=== PATIENT | male | born 1945 | race Caucasian/White ===

== ENCOUNTER → 2017-08-11 11:00 | Outpatient (CLI) | payer MEDICARE, SELFPAY ==
--- NOTE | 2017-08-11 11:04 | CA_ITS ---
PROCEDURE: 2-D M-mode and color Doppler study INDICATIONS FOR THE TEST: Chest pain COPD Heart Murmur Tobacco Smoking Palpitations Fatigue Syncope Edema Hypertension Diabetes Mellitus Rheumatic Fever SOB MCKEON Obesity Hyperlipidemia Family History HD Additional History PATIENT INFORMATION HEIGHT: 67 WEIGHT:204 GENDER: Male B/P:130/70 2-D/M-MODE INTERPRETATION: 2-D MEASUREMENTS OBSERVED VALUES IN CMS Right Ventricular Dimension (RVDd) 2.4 Interventricular Septum (Thickness)(IVsd) 1.2 Left Ventricular Internal Dimensions(LVIDd) 4.1 Left Ventricular Posterior Wall (Thickness)(LVPWd) 1.2 Aortic Root 3.4 Aortic Cusp Separation 1.4 Left Atrial Dimensions (LAD) 3.8 2D 1. Left atrium is mildly enlarged, left ventricle is normal size, mild concentric left ventricular hypertrophy, visually estimated ejection fraction of 55% with no obvious regional wall motion abnormality. 2. The right atrium and right ventricle are normal size and contractility. 3. The aortic valve is thickened and calcified leaflet, display mobility. 4. The mitral and tricuspid valve leaflets are minimally thickened. 5. The pulmonic valve is poorly visualized 6. No significant pericardial effusion noted. DOPPLER INTERROGATION: Doppler interrogation of the aortic, mitral and tricuspid valvular presence of mild mitral and tricuspid regurgitation, tricuspid and jet velocity insufficient for calculation of the right ventricular systolic pressure, grade 1 diastolic dysfunction seen with tissue Doppler evidence of raised left atrial pressure. CONCLUSION: 1. Mildly enlarged left atrium, normal left ventricular size, mild concentric left ventricular hypertrophy, visually estimated ejection fraction 55% with no obvious regional wall motion abnormality, grade 1 diastolic dysfunction seen with tissue Doppler evidence of raised left atrial pressure. 2. Thickened and calcified aortic valve without Doppler evidence of aortic stenosis aortic insufficiency 3. Mild mitral and tricuspid addition 4. No significant pericardial effusion noted.
== END ==
PROVIDERS: Family Provider Family Medicine; PCP Family Medicine; Visit Provider Family Medicine
DX: R01.1 Cardiac murmur, unspecified (principal)
CPT/HCPCS: 93306

== ENCOUNTER 2021-11-22 17:10 | Emergency (ER) | payer MEDICARE, SELFPAY ==
[2021-11-22 17:11] VITALS: BP 158/60; PULSE 60; RESP 17; TEMP 36.6; O2SAT 99; BMI 30.4
[2021-11-22 17:31] VITALS: BP 146/61; RESP 12
--- NOTE | 2021-11-22 17:31 | ECG_ITS ---
APPROVED REPORT Exam: Resting ECG HR:60 bpm ECG Measurements Heart Rate 60 AXES ME 190 P 28 QRSd 108 QRS -7 QT 380 T 58 QTc 382 Conclusion SINUS RHYTHM WITH FREQUENT VENTRICULAR PREMATURE COMPLEXES IN A BIGEMINAL PATTERN INCOMPLETE RIGHT BUNDLE BRANCH BLOCK [90+ ms QRS DURATION, TERMINAL R IN V1/V2, 40+ ms S IN I/aVL/V4/V5/V6] SEPTAL MYOCARDIAL INFARCTION , OF INDETERMINATE AGE [40+ ms Q WAVE IN V1/V2] ABNORMAL ECG UNCONFIRMED REPORT Electronically signed by : Dorian Jorge MD 11/24/2021 21:05:40
[2021-11-22 17:34] VITALS: BMI 30.4
--- NOTE | 2021-11-22 17:35 | XR_ITS ---
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 Views: 1 view. Portable AP exam 6:08 p.m. COMPARISON: No relevant prior studies available. FINDINGS: Tubes, catheters and devices: Overlying monitoring tech electrodes. Lungs: Question mild granulomatous changes in the lower lungs, versus artifact from dense vascular shadows. No acute findings. No consolidation. Lung volumes within normal limits. Mild left basilar subsegmental atelectasis or scarring. Pulmonary vessels do not appear congested. Pleural spaces: Unremarkable. No significant pleural effusion. No pneumothorax. Heart/Mediastinum: The cardiac silhouette appears borderline enlarged, but is accentuated by portable AP technique. Mediastinal surgical changes. Calcified plaque in the aortic arch. Bones/joints: Sternotomy wires. There are spinal degenerative changes, with multilevel disc narrrowing and spondylosis. Bilateral acromioclavicular arthritis. IMPRESSION: 1. No acute findings. 2. Additional chronic appearing and non emergency findings, as above.
[2021-11-22 17:46] LABS: Basophils # 0.1 K/mm3 (0-0.2); Basophils % 0.9 % (0.1-2.0); Eosinophils # 0.7 K/mm3 (0.0-0.4); Hemoglobin 13.7 g/dL (14.1-18.0); Lymphocytes # 2.8 K/mm3 (0.7-4.5); Lymphocytes % 30.5 % (10-50); Mean Corpuscular HGB Conc 34.3 g/dL (31.8-35.4); Mean Corpuscular Hemoglobin 32.1 pg (27.0-31.2); Mean Corpuscular Volume 93.3 fl (80-94); Mean Platelet Volume 8.4 fl (7.4-10.4); Monocytes # 0.6 K/mm3 (0.1-1.0); Monocytes % 6.4 % (1.7-9.3); Neutrophils # 5.2 K/mm3 (1.8-7.8); Neutrophils % 55.3 % (37.0-80.0); Platelet Count 171 K/mm3 (142-424); Red Blood Count 4.29 M/mm3 (4.60-6.20); Red Cell Distribution Width 12.8 % (11.5-17.5); White Blood Count 9.3 K/mm3 (4.8-10.8)
[2021-11-22 17:48] LABS: Chloride 108 mmol/L (98-107); Potassium 4.6 mmoL/L (3.5-5.1); Sodium 138 mmol/L (136-145)
--- NOTE | 2021-11-22 17:48 | HMH.EDGENADL ---
ED Disposition Clinical Impression: Dizziness Disposition: Home, Self-Care Condition on Discharge: Good Additional Instructions: Continue daily aspirin therapy. Return for worsening dizziness or other concerns. 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 Prescriptions: Clopidogrel Bisulfate [Plavix 75mg Tab] 75 mg PO DAILY #30 tab Clopidogrel Bisulfate [Plavix 75mg Tab] 75 mg PO DAILY #30 tab Transmission Status: Received by [id number] Referrals: Natalie Castano MD [Primary Care Provider] - - Critical Care Critical Care Time: No Attestation: On 11/22/21, the high probability of a clinically significant, sudden or life threatening deterioration of the following system(s) required my full and direct attention, intervention and personal management. The time I documented below is in addition to time spent performing reported procedures but includes the following listed in this critical care notation. Medical Decision Making - Medical Records Medical records reviewed: Yes: I reviewed the patient's medical records. - Kevin Inquiry Pt receiving controlled substance: No Vital Signs: 11/22/21 17:11 11/22/21 17:31 11/22/21 18:03 Temperature 98 F Temperature Source Oral Pulse Rate 64 Pulse Rate [Left Radial] 60 Respiratory Rate 17 12 12 Blood Pressure 146/61 H 157/66 H Blood Pressure [Right Arm] 158/60 H Blood Pressure Mean 72 78 Blood Pressure Mean [Right Arm] 92 Blood Pressure Source Blood Pressure Source [Right Arm] Automatic Cuff Blood Pressure Position Blood Pressure Position [Right Arm] Sitting 02 Sat by Pulse Oximetry 99 98 Oxygen Delivery Method Room Air 11/22/21 18:32 11/22/21 19:01 11/22/21 19:16 Temperature 98 F Temperature Source Oral Pulse Rate 62 65 62 Pulse Rate [Left Radial] Respiratory Rate 14 12 12 Blood Pressure 201/90 H 138/50 L 138/50 L Blood Pressure [Right Arm] Blood Pressure Mean 104 79 Blood Pressure Mean [Right Arm] Blood Pressure Source Automatic Cuff Blood Pressure Source [Right Arm] Blood Pressure Position Sitting Blood Pressure Position [Right Arm] 02 Sat by Pulse Oximetry 99 100 Oxygen Delivery Method Room Air - Lab Data Lab results reviewed: Yes: I reviewed the patient's lab results. Lab Results 11/22/21 17:30: WBC 9.3, RBC 4.29 L, Hgb 13.7 L, Hct 40.0 L, MCV 93.3, MCH 32.1 H, MCHC 34.3, RDW 12.8, Plt Count 171, MPV 8.4, Neut % (Auto) 55.3, Lymph % (Auto) 30.5, Lamb % (Auto) 6.4, Eos % (Auto) 7.0, Baso % (Auto) 0.9, Neut # (Auto) 5.2, Lymph # (Auto) 2.8, Lamb # (Auto) 0.6, Eos # (Auto) 0.7 H, Baso # (Auto) 0.1 11/22/21 17:30: Sodium 138, Potassium 4.6, Chloride 108 H, Carbon Dioxide 25, Anion Gap 9.6, BUN 19, Creatinine 1.20, Estimated Creat Clear 69, Estimated GFR 59, Est GFR ( Amer) 72, Glucose 117 H, Calcium 9.9, Troponin I < 0.01 Result diagrams: 11/22/21 17:30 11/22/21 17:30 Orders (Tests/Meds): ED MEDICATIONS Discontinued Medications Generic Name Dose Route Start Last Admin Trade Name Freq PRN Reason Stop Dose Admin Sodium Chloride 10 ml 11/22/21 17:35 Sodium Chloride 0.9% 10ml Flush Syringe IV 12/22/21 17:34 NEEDED PRN Maintain IV Site General Adult HPI - General Chief complaint: Recheck/Abnormal Lab/Rx Stated complaint: low heart rate Time Seen by Provider: 11/22/21 17:30 Mode of Arrival: Wheelchair Source of Information: Patient Limitations: No Limitations Description of Symptoms (Recalled from ER Triage Doc. by RN): sent over by pcp for biggeminal pattern, pt states he went to the doctor due to being dizzy, symptoms have resolved at this time. - Related Data Previous Rx's Medication Instructions Recorded Clopidogrel Bisulfate [Plavix 75mg 75 mg PO DAILY #30 tab 11/22/21 Tab] Clopidogrel Bisulfate [Plavix 75mg 75 mg PO DAILY #30 tab 11/22/21 Tab] Allergies Allergy/AdvReac Type Severity React
[2021-11-22 17:51] LABS: Anion Gap 9.6 mEq/L (5-15); Blood Urea Nitrogen 19 mg/dl (9-20); Carbon Dioxide 25 mmol/L (22.0-30.0); Creatinine Clearance Estimated 69 mL/min (50-200); Estimated Glomerular Filt Rate 59 ml/min (>60); GFR (African American) 72 ML/MIN (>60)
[2021-11-22 17:52] LABS: Calcium 9.9 mg/dl (8.4-10.2); Glucose 117 mg/dl (74-100)
--- NOTE | 2021-11-22 17:52 | PC.NURSE ---
MD AT BEDSIDE TO EVALUATE PT
--- NOTE | 2021-11-22 17:53 | PC.NURSE ---
XR AT BEDSIDE
--- NOTE | 2021-11-22 17:57 | CT_ITS ---
PROCEDURE INFORMATION: Exam: CT Head Without Contrast Exam date and time: 11/22/2021 6:08 PM Age: 76 years old Clinical indication: Dizziness; Additional info: Dizzy TECHNIQUE: Imaging protocol: Computed tomography of the head without contrast. Radiation optimization: All CT scans at this facility use at least one of these dose optimization techniques: automated exposure control; mA and/or kV adjustment per patient size (includes targeted exams where dose is matched to clinical indication); or iterative reconstruction. COMPARISON: No relevant prior studies or reports available. FINDINGS: Brain: No acute intracranial findings. No intracranial hemorrhage. No edema, swelling or mass-effect. There is moderate generalized cerebral atrophy. There is a chronic appearing cystic lacunar infarct of approximately 8 mm in the posterolateral left basal ganglia series 3, image 34 and coronal series 1001, image 37. Some mild patchy areas of white matter disease suggested in both cerebral hemispheres, nonspecific but likely chronic microvascular ischemic change in a 76-year-old. There is cystic encephalomalacia in the posterosuperior right cerebellar are cortex, likely old infarct, coronal image 53, sagittal image 26, axial series 3 images 13-15. Cerebral ventricles: The ventricles are normal for age, with mild ex vacuo change. No significant hydrocephalus. Paranasal sinuses: Findings of ediyv-jx-bqbmazp sinusitis. There is moderate right maxillary mucosal thickening with a small air-fluid level. Mild left maxillary mucosal thickening. Moderate partial opacification of anterior and middle ethmoid air cells, mild posterior mucosal thickening. Thickened mucosa in the inferior left frontal sinus with some bubbly secretions and trace fluid. Mastoid air cells: Mastoids are unremarkable as visualized, no effusions. Bones/joints: No acute skull fracture. No lytic lesions. Degenerative changes in the visualized upper cervical spine. Soft tissues: There are no soft tissue masses or fluid collections. Multiple skin calcifications. Vasculature: There are atherosclerotic calcified plaques in the intracranial carotid and vertebral arteries, and in smaller vessels in the posterior fossa. IMPRESSION: 1. There is no CT evidence of intracranial mass, intracranial hemorrhage, or acute infarct. 2. 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 3. Vruai-sh-itecxmo sinusitis as detailed above, with some fluid and some bubbly secretions in the right maxillary and left frontal sinuses.
[2021-11-22 18:03] VITALS: BP 157/66; PULSE 64; RESP 12; O2SAT 98
[2021-11-22 18:09] LABS: Troponin I < 0.01 ng/ml (0.00-0.034)
--- NOTE | 2021-11-22 18:30 | PC.NURSE ---
1830 PAGED CARDIOLOGY AT [facility] FOR DR. BARAJAS
[2021-11-22 18:32] VITALS: BP 201/90; PULSE 62; RESP 14; O2SAT 99
--- NOTE | 2021-11-22 18:32 | PC.NURSE ---
DR. PENNY AT BEDSIDE
--- NOTE | 2021-11-22 18:47 | PC.NURSE ---
BENNIE speaking to DR BARAJAS
--- NOTE | 2021-11-22 18:54 | PC.NURSE ---
DR TORREZ SPOKE WITH DR BARAJAS SHE ADVISES THEY HAVE NO BEDS AVAILABLE BUT THEY COULD FOLLOW-UP TOMORROW IN WITH PT UPDATING THEM ON THE PHONE CALL
[2021-11-22 19:01] VITALS: BP 138/50; PULSE 65; RESP 12; O2SAT 100
--- NOTE | 2021-11-22 19:08 | PC.NURSE ---
paged for pt, oncology coordinator for doctor
[2021-11-22 19:16] VITALS: BP 138/50; PULSE 62; RESP 12; TEMP 36.6; O2SAT 100
== END 2021-11-22 19:24 | disposition home or self-care (01) ==
PROVIDERS: Emergency Provider Emergency Medicine; PCP Family Medicine
DX: R42 Dizziness and giddiness (principal); Z88.6 Allergy status to analgesic agent; Z79.01 Long term (current) use of anticoagulants
CPT/HCPCS: 70450; 71045; 80048; 84484; 85025; 93005; 99284

== ENCOUNTER 2022-04-03 10:25 | Emergency (ER) | payer MEDICARE, SELFPAY ==
[2022-04-03 12:30] VITALS: BP 128/67; PULSE 64; RESP 19; TEMP 36.7; O2SAT 98; BMI 31.0
--- NOTE | 2022-04-03 12:53 | EXP.UTC ---
Discharge Plan Disposition Patient Disposition: Home, Self-Care Condition: Good Prescriptions Prescriptions: New doxycycline hyclate 100 mg capsule 100 mg PO BID Qty: 20 0RF prednisone 10 mg tablet 10 mg PO BID 5 Days Qty: 10 0RF guaifenesin [Mucinex] 600 mg tablet extended release 12hr 600 mg PO BID PRN (Reason: cough) Qty: 20 0RF No Action clopidogrel 75 MG tablet 75 mg PO DAILY Qty: 30 11RF clopidogrel 75 MG tablet 75 mg PO DAILY Qty: 30 0RF Referrals Follow up/Referrals: Natalie Castano MD [Primary Care Provider] - See instructions Activity Restrictions/Add. Instructions Additional Instructions/Restrictions: Start antibiotic today. Be sure to complete entire prescription even if feeling better Monitor temp. Tylenol every 4 hours as needed and / or ibuprofen every 6 hours as needed ( As long as your primary care physician has told you that it ok to take both. For fever/aches/pains ER if no less than 101 despite Tylenol or Motrin Humidifier/vaporizer or hot steamy shower Mucinex for your cough and chest congestion. Be sure to drink lots of water. *Start steroid tomorrow. Helps with inflammation therefore, cough and wheezing. Follow directions on the package. Reviewed side effects. Patient reports taking them before. Follow up IMMEDIATELY for new or worsening of symptoms OR no noticeable improvement over the next 48-72 hours. 911 immediately for any life threatening symptoms such as chest pain or difficulty breathing Clinical Impressions Clinical Impression: Bronchitis Sinusitis Qualifiers: Sinusitis location: unspecified location Chronicity: unspecified Qualified Code(s): J32.9 - Chronic sinusitis, unspecified Instructions Patient Instructions: Sinusitis, Acute Bronchitis, DI for Sinusitis Discharge ED Provider: Xochilt Garcia [facility] [place] HPI General Stated complaint: Sore throat, ZAMBRANO, Chest Congestion Mode of Arrival: Ambulatory Source of Information: Patient and Spouse Limitations: No Limitations Time Seen by Provider: 04/03/22 12:54 Description of Symptoms (Recalled from Triage Doc. by RN): PATIENT C/O SORE THROAT, COUGH, HEAD AND CHEST CONGESTION X 3 DAYS HEENT Symptoms (Recalled from RN notes): Yes Resp Symptoms (Recalled from RN notes): Yes Skin Symptoms (Recalled from RN notes): No MS Symptoms (Recalled from RN notes): No Functional Status (Recalled from RN notes): WNL History of Present Illness Provider Complaint: Patient state that he thinks he has been fighting a sinus infection for about a week that has got worse over the last 3-4 dyas States that he is having sinus congestion and pressure, cough and feels like it is draining in his throat making his throat sore and trying to move into his chest so today when he was still not feeling well he came in Related Data Previous Rx's Medication Instructions Recorded clopidogrel 75 mg tablet 75 mg PO DAILY #30 tabs 11/22/21 clopidogrel 75 mg tablet 75 mg PO DAILY #30 tabs 11/22/21 doxycycline hyclate 100 mg capsule 100 mg PO BID #20 caps 04/03/22 guaifenesin 600 mg tablet, 600 mg PO BID PRN cough #20 tabs 04/03/22 extended release 12 hr (Mucinex) prednisone 10 mg tablet 10 mg PO BID 5 days #10 tabs 04/03/22 Allergies Allergy/AdvReac Type Severity Reaction Status Date / Time CODEINE Allergy Unknown MAKES SKIN Uncoded 04/25/17 14:42 CRAWL Worker's Comp Is this a Worker's Comp case?: No PFSH PFSH Medical History (Updated 04/03/22 @ 13:03 by Xochilt Garcia APRN) Asthma Depression Hyperlipidemia Hypertension Social History (Updated 04/03/22 @ 12:40 by Светлана Lindsay RN) Smoking Status: Unknown if ever smoked alcohol intake: never current occupational status: other Travel in the last 8 weeks: None ROS Obtained: Yes All systems reviewed & no additional complaints except as documented and Yes Systems reviewed as appropriate & no additional
[2022-04-03 12:58] LABS: UTC Strep Screen (Rapid) Negative (Negative)
[2022-04-03 13:09] VITALS: BP 128/67; PULSE 64; RESP 19; TEMP 36.7; O2SAT 98
== END 2022-04-03 13:10 | disposition home or self-care (01) ==
PROVIDERS: Emergency Provider Nurse Practitioner; PCP Family Medicine
DX: J32.9 Chronic sinusitis, unspecified (principal); J02.9 Acute pharyngitis, unspecified; R05.9 Cough, unspecified; R51.9 Headache, unspecified; R09.89 Other specified symptoms and signs involving the circulatory and respiratory systems; I10 Essential (primary) hypertension; E78.5 Hyperlipidemia, unspecified; J45.909 Unspecified asthma, uncomplicated; F32.A Depression, unspecified; Z79.01 Long term (current) use of anticoagulants; Z79.899 Other long term (current) drug therapy; Z88.5 Allergy status to narcotic agent
CPT/HCPCS: 87880; 96372; 99213; G0463; J0696

== ENCOUNTER 2022-04-23 09:09 | Emergency (ER) | payer MEDICARE, SELFPAY ==
[2022-04-23 09:35] VITALS: BP 130/91; PULSE 72; RESP 16; TEMP 36.6; O2SAT 96; BMI 30.4
[2022-04-23 09:47] LABS: UTC Strep Screen (Rapid) Negative (Negative)
--- NOTE | 2022-04-23 09:49 | EXP.UTC ---
Discharge Plan Disposition Patient Disposition: Home, Self-Care Condition: Good Prescriptions Prescriptions: New azithromycin [Zithromax Z-René] 250 mg tablet See Rx Instructions .ROUTE .COMPLEX Qty: 6 0RF Rx Instructions: For 250 mg dose pack: take 500 mg today (day 1), then 250 mg for 4 days (days 2-5) Hold cholesterol medication while taking. No Action doxycycline hyclate 100 mg capsule 100 mg PO BID Qty: 20 0RF prednisone 10 mg tablet 10 mg PO BID 5 Days Qty: 10 0RF guaifenesin [Mucinex] 600 mg tablet extended release 12hr 600 mg PO BID PRN (Reason: cough) Qty: 20 0RF clopidogrel 75 MG tablet 75 mg PO DAILY Qty: 30 11RF clopidogrel 75 MG tablet 75 mg PO DAILY Qty: 30 0RF Referrals Follow up/Referrals: Natalie Castano MD [Primary Care Provider] - See instructions Clinical Impressions Clinical Impression: Upper respiratory tract infection Instructions Patient Instructions: Acute Bronchitis Discharge ED Provider: Elissa Ribeiro [facility] General Stated complaint: sore throat, sore tongue, congestion Mode of Arrival: Ambulatory Source of Information: Patient Limitations: No Limitations Time Seen by Provider: 04/23/22 09:49 Description of Symptoms (Recalled from Triage Doc. by RN): pt comes in with c/o head/nasal congestion, runny nose, sore throat. symptoms began 6-7 days ago HEENT Symptoms (Recalled from RN notes): Yes Resp Symptoms (Recalled from RN notes): Yes Skin Symptoms (Recalled from RN notes): No MS Symptoms (Recalled from RN notes): No Functional Status (Recalled from RN notes): n/a History of Present Illness Provider Complaint: Pt relates that he was treated with steroids and antibiotics about 3 weeks ago and has not felt well since. He states that his sinus drainage has been clear but he has had a strong productive cough. He reports that he has had a sore throat and that his mouth and tongue burn. Related Data Previous Rx's Medication Instructions Recorded clopidogrel 75 mg tablet 75 mg PO DAILY #30 tabs 11/22/21 clopidogrel 75 mg tablet 75 mg PO DAILY #30 tabs 11/22/21 doxycycline hyclate 100 mg capsule 100 mg PO BID #20 caps 04/03/22 guaifenesin 600 mg tablet, 600 mg PO BID PRN cough #20 tabs 04/03/22 extended release 12 hr (Mucinex) prednisone 10 mg tablet 10 mg PO BID 5 days #10 tabs 04/03/22 azithromycin 250 mg tablet See Rx Instructions PO .COMPLEX #6 04/23/22 (Zithromax Z-René) tabs Allergies Allergy/AdvReac Type Severity Reaction Status Date / Time codeine Allergy Verified 04/23/22 09:39 Worker's Comp Is this a Worker's Comp case?: No [facility] Disclaimer: The information contained in this section may have been updated after the patient was seen, as this information can be updated by other users. Medical History (Updated 04/23/22 @ 10:06 by Elissa Ribeiro APRN) Asthma Depression Hyperlipidemia Hypertension Social History (Updated 04/03/22 @ 20:50 by Xochilt Garcia APRN) Smoking Status: Unknown if ever smoked alcohol intake: never current occupational status: other Travel in the last 8 weeks: None ROS Obtained: Yes All systems reviewed & no additional complaints except as documented Constitutional Constitutional: Reports fatigue and Reports malaise Eyes Eyes: Reports system reviewed and no additional complaints, except as documented ENT Ears, Nose, Mouth, and Throat: Reports nasal congestion, Reports nasal discharge, Reports odynophagia, Reports post nasal drip and Reports sore throat Cardiovascular Cardiovascular: Reports system reviewed and no additional complaints, except as documented Respiratory Respiratory: Reports cough with sputum production Gastrointestinal Gastrointestingal: Reports system reviewed and no additional complaints, except as documented and odynophagia Genitourinary Male Genitourinary: Reports system reviewed and no additional complaints, except as documented Musculoskeletal Mus
[2022-04-23 10:09] VITALS: BP 130/91; PULSE 72; RESP 16; TEMP 36.6
== END 2022-04-23 10:12 | disposition home or self-care (01) ==
PROVIDERS: Emergency Provider Nurse Practitioner Family; PCP Family Medicine
DX: J06.9 Acute upper respiratory infection, unspecified (principal)
CPT/HCPCS: 87880; 99212; G0463

== ENCOUNTER 2022-06-29 08:00 | Outpatient (RCR) | payer MEDICARE, SELFPAY | END 2022-06-29 08:05 | disposition home or self-care (01) | LOC: OT 08:00 | PROVIDERS: PCP Family Medicine; Visit Provider Orthopaedic Surgery | DX: M25.512 Pain in left shoulder (principal); S43.002A Unspecified subluxation of left shoulder joint, initial encounter; M75.22 Bicipital tendinitis, left shoulder; M75.42 Impingement syndrome of left shoulder; M75.52 Bursitis of left shoulder | CPT/HCPCS: 97010; 97014; 97110; 97140; 97164; 97166; 97530; G0283 ==

== ENCOUNTER → 2022-09-07 12:24 | Outpatient (POV) | payer MEDICARE, SELFPAY | PROVIDERS: Visit Provider Specialist/Technologist | DX: Z00.00 Encounter for general adult medical examination without abnormal findings (principal) ==

== ENCOUNTER → 2022-12-28 10:27 | Outpatient (CLI) | payer MEDICARE, SELFPAY ==
[2022-12-28 10:35] LABS: Influenza A, PCR Not Detected (NotDetected); Influenza B, PCR Not Detected (NotDetected)
[2022-12-28 11:41] LABS: Coronavirus 19, PCR Detected (NotDetected)
== END ==
PROVIDERS: PCP Family Medicine; Visit Provider Internal Medicine
DX: U07.1 COVID-19 (principal); R50.9 Fever, unspecified; R05.9 Cough, unspecified; R53.83 Other fatigue; R53.81 Other malaise; J02.9 Acute pharyngitis, unspecified
CPT/HCPCS: 87636

== ENCOUNTER 2023-06-16 16:38 | Outpatient (CLI) | payer MEDICARE, SELFPAY ==
[2023-06-16 16:16] LABS: Adenovirus,PCR Not Detected (NotDetected); Coronavirus 19, PCR Not Detected (NotDetected); Coronavirus 229E Not Detected (NotDetected); Coronavirus NL63 Not Detected (NotDetected); Coronavirus OC43 Not Detected (NotDetected); Coronovirus HKU1,PCR Not Detected (NotDetected); Human Metapneumovirus Not Detected (NotDetected); Influenza A, PCR Not Detected (NotDetected); Influenza AH3,PCR Not Detected (NotDetected); Influenza B, PCR Not Detected (NotDetected); Parainfluenza 1, PCR Not Detected (NotDetected); Parainfluenza 2, PCR Not Detected (NotDetected); Parainfluenza 3, PCR Not Detected (NotDetected); Parainfluenza 4, PCR Not Detected (NotDetected); Respiratory Syncytial Virus Not Detected (NotDetected); Rhinovirus/Enterovirus Not Detected (NotDetected)
[2023-06-16 23:38] LABS: Influenza AH1, PCR Not Detected (NotDetected)
[2023-06-16 23:39] LABS: Influenza AH1, 2009 Detected (NotDetected)
== END 2023-06-16 23:59 ==
PROVIDERS: PCP Nurse Practitioner; Visit Provider Nurse Practitioner
DX: J09.X2 Influenza due to identified novel influenza A virus with other respiratory manifestations; R05.8 Other specified cough; J45.909 Unspecified asthma, uncomplicated
CPT/HCPCS: 87632; 87635

== ENCOUNTER 2023-11-07 08:00 | Outpatient (RCR) | payer MEDICARE, SELFPAY | END 2023-11-07 08:05 | disposition home or self-care (01) | LOC: PT 08:00 | PROVIDERS: Visit Provider Physician Assistant Surgical | DX: M51.36 Other intervertebral disc degeneration, lumbar region (principal) | CPT/HCPCS: 97010; 97110; 97163; 97530 ==